=== PATIENT | female | born 1970 | race Caucasian/White ===

== ENCOUNTER 2019-07-23 17:32 | Emergency (ER) | payer BC ==
[~2019-07-23] VITALS: Ht 162.6 cm; Wt 50.0 kg
[2019-07-23 17:52] VITALS: BP 121/63
== END 2019-07-23 17:53 | disposition home or self-care (01) ==
LOC: ER 17:33
DX: R40.1 Stupor (principal); V87.7XXA Person injured in collision between other specified motor vehicles (traffic), initial encounter; Y93.89 Activity, other specified; Y92.89 Other specified places as the place of occurrence of the external cause; Y99.8 Other external cause status
CPT/HCPCS: 99283